=== PATIENT | male | born 1960 | race Caucasian/White ===

== ENCOUNTER 2016-06-18 12:42 | Emergency (ER) | payer OTHER ==
[2016-06-18] MEDS ORDERED: Ketorolac Tromethamine 60 MG/2 ML VIAL ONE (12:55)
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
[2016-06-18] MEDS ORDERED: Bacitracin Zinc 1 Packet ONE (13:55)
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
== END 2016-06-18 14:02 | disposition home or self-care (01) ==
LOC: NAV ERS 12:42
DX: S30.0XXA Contusion of lower back and pelvis, initial encounter (principal); S80.212A Abrasion, left knee, initial encounter; S80.211A Abrasion, right knee, initial encounter; I10 Essential (primary) hypertension; E11.9 Type 2 diabetes mellitus without complications; V89.2XXA Person injured in unspecified motor-vehicle accident, traffic, initial encounter
CPT/HCPCS: 71010; 72170; 96372; J1885